=== PATIENT | female | born 1970 | race Caucasian/White ===

== ENCOUNTER 2024-08-26 11:04 | Outpatient (CLI) | payer OTHER | END 2024-08-26 11:07 | disposition home or self-care (01) | LOC: SONOGRAMA 11:04 | PROVIDERS: ATTEND Pathology Anatomic Pathology & Clinical Pathology | DX: E04.2 Nontoxic multinodular goiter (principal) ==

== ENCOUNTER 2025-08-01 08:09 | Outpatient (CLI) | payer OTHER | END 2025-08-01 08:12 | disposition home or self-care (01) | LOC: SONOGRAMA 08:09 | PROVIDERS: ATTEND Pathology Anatomic Pathology | DX: D44.0 Neoplasm of uncertain behavior of thyroid gland (principal); E04.2 Nontoxic multinodular goiter ==